=== PATIENT | female | born 1995 | race Caucasian/White ===

== ENCOUNTER 2021-01-21 05:15 | Inpatient (IN) | payer OTHER, SELFPAY ==
[2021-01-21] VITALS (42 sets, daily range): BP systolic 96–136; BP diastolic 54–80; PULSE 71–105; RESP 14–16; TEMP 35.9–37.2; O2SAT 94–100; BMI 32.4
[2021-01-21] MEDS: Lactated Ringers 1,000 ML 50 ML IV (06:15)
[2021-01-21 06:46] LABS: Absolute Lymphocyte Count 1.57 X10^3/uL (0.83-4.51); Absolute Neutrophil Count 8.4 X10^3/uL (2.0-7.7); Basophil# 0.04 X10^3/uL; Basophil% 0.4 % (0-1); Eosinophil# 0.05 X10^3/uL; Eosinophils% 0.5 % (0-5); Hematocrit 32.7 % (37-47); Hemoglobin 10.9 g/dL (12.0-15.0); Lymphocyte # 1.57 X10^3/ul (0.83-4.51); Lymphocyte % 14.1 % (19-41); Mean Corp Hgb Conc 33.3 g/dL (32-36); Mean Corpuscular Hgb 27.9 pg (27.0-32.0); Mean Corpuscular Volume 83.8 fL (81-99); Mean Platelet Vol. 10.3 fl (6.2-12.0); Monocyte# 0.86 X10^3/uL; Monocyte% 7.7 % (0-10); NRBC Flagged by Analyzer 0 % (0-5); Neutrophil # 8.39 X10^3/uL (2.7-7.7); Neutrophil % 75.6 % (47-70); Platelet Count 235 K/mm3 (150-450); RBC Distribution Width CV 14.3 % (11.6-14.6); RBC Distribution Width SD 43.6 fl (35.1-43.9); White Blood Count 11.1 K/mm3 (4.4-11.0)
--- NOTE | 2021-01-21 07:44 | PCM.HP.OB ---
HPI - General General Date of Admission: 01/21/21 HPI Narrative MAHAD LEW, is a 25 F at 39.5 weeks gestation that presents to triage with leaking amniotic fluid. Patient reported feeling a gush of fluid around 0300. Denies any vaginal bleeding. Positive movement. has been uncomplicated. is a result of Clomid and IUI. Maternal Data Information NINA Calculator Estimated Delivery Date Method Current WG Current Estimate 01/23/21 Manual 39w 5d PFSH PFSH Medical History Infertility Home Medications 1 cap PO/SL DAILY 01/21/21 [History Last Taken Unknown] Allergy/AdvReac Type Severity Reaction Status Date / Time No Known Allergies Allergy Verified 01/21/21 06:08 Surgical History H/O elbow surgery History of back surgery Hx of tonsillectomy Social History Smoking Status: Never smoker History Elective abortions Hx Para 0 Spontaneous abortions Hx # Term Pregnancies Ectopic pregnancies Hx # Pregnancies Multiple births # of living children NST FHR Rate Baby A Baseline: 135 Variability:: Moderate Accelerations:: 15 x 15 Decelerations:: None NST Reactive:: Yes FHR Category:: Category I Uterine Activity:: 3-5 minutes- palpate moderate and relaxed in between ROS Eyes Eyes: Denies blurry vision, change in vision or spots in vision ENT HEENT: Denies dizziness or headache(s) Cardiovascular Cardiovascular: Denies abdominal pain, chest pain or dyspnea Respiratory/Chest Respiratory/Chest: Denies cough, dyspnea, shortness of breath at rest or shortness of breath with exertion Gastrointestinal Gastrointestinal: Denies abdominal pain, diarrhea or vomiting Genitourinary Genitourinary: Denies change in urinary stream, difficulty urinating or dysuria Musculoskeletal Musculoskeletal: Reports none Integumentary Integumentary: Denies rash Neurologic Neurologic: Denies dizziness, headache(s), memory loss or weakness Psychiatric Psychiatric: Reports none Vital Signs Vital Signs Vital Signs: 01/21/21 05:40 01/21/21 05:45 01/21/21 05:49 Temperature 96.8 F L Temperature Source Temporal Pulse Rate 99 Blood Pressure 136/69 H BP Systolic 136 BP Diastolic 69 Pulse Ox 97 01/21/21 07:13 01/21/21 07:19 01/21/21 07:21 Temperature 97.8 F 97.9 F Temperature Source Temporal Pulse Rate 82 Blood Pressure 116/64 BP Systolic 116 BP Diastolic 64 Pulse Ox 96 96 Weight Weight: 166 lb Body Mass Index (BMI) 32.4 Physical Exam Const alert, oriented x3 and no apparent distress General Appearance: cooperative Orientation / Consciousness: awake Exam Limitations: no limitations HEENT normocephalic Head and Scalp: normal to inspection Eyes General Eye: normal appearance of both eyes Neck full ROM and no lymphadenopathy Lymph Lymphatic: no lymphadenopathy noted Chest inspection of chest normal Resp normal respiratory effort, normal air movement and clear to auscultation bilaterally Effort and Inspection: able to speak in complete sentences and symmetric chest movement Cardio regular rate and regular rhythm GI normal to inspection, nondistended, normoactive bowel sounds Manual OB Exam: dilated 5, effaced 70 and station -2 Back/Spine normal ROM Extremity full ROM and no calf tenderness Skin no rashes or lesions noted General Skin Exam: no breakdown Neuro oriented x3 and CN's II-XII intact bilaterally Psych mental status grossly normal and thought process normal Labs Labs Labs: Blood Type Pending Antibody Screen Pending Hct 32.7 % (37-47) L Hgb 10.9 g/dL (12.0-15.0) L O+ Rubella Immune HB- neg HC- neg HIV - NR RPR- NR GBS - negative Assessment & Plan (1) 39 weeks gestation of : (2) Spontaneous rupture of amniotic membranes: PLAN: Admit to labor and delivery Routine labs Start IV and titrate per orders GBS negative NST- reactive, Cat. 1 tracing Epidural when indicated Start Pitocin IV and titrate per policy Anticipate Dr. Ho notified and is collaborating physician
[2021-01-21] MEDS: Lactated Ringers 500 ML 999 ML IV (10:28)
[2021-01-21] MEDS: fentaNYL-bupivacaine (epidural) 100 ML BAG EPIDURAL (11:26)
--- NOTE | 2021-01-21 12:31 | PCM.PN.BLA ---
Progress Note Patient seen at bedside. Just got epidural and denies pain. RN at bedside and just completed CE. Continues to leak clear fluid. Physical Exam Const alert and no apparent distress General Appearance: cooperative and comfortable Exam Limitations: no limitations HEENT normocephalic Eyes General Eye: normal appearance of both eyes Neck full ROM General: normal visual inspection Chest Chest: symmetrical chest wall rise Resp normal respiratory effort and normal air movement Effort and Inspection: symmetric chest movement Auscultation: clear to auscultation bilaterally Cardio regular rate and regular rhythm GI normal to inspection, nondistended, normoactive bowel sounds Back/Spine normal ROM Extremity full ROM and no calf tenderness General Extremity: normal exam except as noted Skin no rashes or lesions noted Neuro CN's II-XII intact bilaterally Psych mental status grossly normal Assessment & Plan Assessment/Plan (1) 39 weeks gestation of : (2) Spontaneous rupture of amniotic membranes: PLAN: CE- 6.5/70/-1 FSE and IUPC placed without difficulty Start pitocin IV and titrate per policy Anticipate
[2021-01-21] MEDS: Oxytocin 30 units/NS 500 ml 30 UNITS/500 ML IV.SOLN IV (12:44)
[2021-01-21] MEDS: Lactated Ringers 1,000 ML 200 ML IV (13:25)
[2021-01-21] MEDS: Cefazolin 2 GM in 0.9% Normal Saline 100 ML IV (16:05)
--- NOTE | 2021-01-21 16:46 | EX.PCM.OBRPT ---
Assessment & Plan (1) Late deceleration of heart rate: (2) Arrest of dilation, delivered, current hospitalization: (3) Single live : (4) delivery delivered: Maternal Data Information NINA Calculator Estimated Delivery Date Method Current WG Current Estimate 01/23/21 Manual 39w 5d Final NINA: 01/23/21 Gestational age: 39 5/7 Details Operative Information Date of Procedure: 01/21/21 Pre-Operative Diagnosis: arrest of dilation, persistent late decelerations remote from delivery Post-Operative Diagnosis: same Classification: LUISA Procedure Type: low transverse clam shucking machine tender #1: Alisha Cortez Type of Anesthesia: Epidural Anesthesiologist: Stu Wright Antibiotic Given: Ancef 2 grams IV x1 Drain: Burrows to straight drain Estimated Blood Loss: 800 Fluids Replaced: 1200 Procedure Start Time: 16:16 Procedure Stop Time: 16:49 Time of Delivery: 16:17 Findings Description of Procedure: findings: vigorous male infant, normal uterus, tubes and ovaries, normal placenta with 3 vessel cord The patient had had a prolonged deceleration earlier in labor. She was taken to the operating room but the heart tones recovered and stabilized. She was taken back to the labor room. She was allowed to labor but did not really progress past 6 cm. She had persistently decelerations and another prolonged deceleration. She was taken to the operating room and decision was made to proceed with a section as soon as reasonably possible. The heart tones had recovered when she was in the operating room. Being remote from delivery and having been 6 cm for several hours decision was made to proceed with delivery. The patient was taken to the operating room. She was prepped and draped in the dorsal supine position with a leftward tilt. A Pfannenstiel skin incision was made approximately 2 cm above the symphysis pubis and carried through to underlying layer fascia with the scalpel. The fascia was incised incised in the midline and all layers were extended bluntly. The rectus muscles were in the midline and the peritoneum was entered bluntly. The peritoneal incision was stretched and the bladder blade was placed. The uterine incision was made in a low transverse fashion with the scalpel and extended superiorly and inferiorly with blunt dissection. The amniotic membranes were ruptured bluntly and clear amniotic fluid returned. The 's head was brought to the incision in the flexed position and delivered without difficulty. The remainder of the was delivered with gentle traction and fundal pressure in the standard fashion. The mouth and nares were bulb suctioned. The cord was clamped and cut as the was stimulated. Cord clamping was delayed. The infant was handed off to the waiting nursing staff. The placenta was delivered with fundal massage and gentle traction in the standard fashion. The uterus was exteriorized and cleared of all clots and debris. The uterine incision was closed with #1 Vicryl in a running locked fashion. A second layer of the same suture was used in an imbricating fashion. The incision was examined and was found to be hemostatic. Jason was placed over the incision and some bleeding of the peritoneal edges was noted. Bovie was used to obtain hemostasis of these edges. The uterus was placed back into the peritoneal cavity and hemostasis was again confirmed. The rectus muscles were examined and any bleeding was Bovie cauterized. The parietal peritoneum and rectus muscles were closed en bloc with an 0 Vicryl running suture. The surgical teams outer gloves were then changed. The rectus fascia was examined and any bleeding was Bovie cauterized and the rectus fascia was closed with 1 Vicryl suture in a running standard fashion. The subcutaneous tissue was examining and any bleeding was Bovie cauterized. The subcutaneous tissue was reapproximated with 3-0 Vicryl suture. The skin was closed in a subcuticular fashion by the UI ARCHITECT with me present in the labor and delivery suite. I performed the remainder of the procedure with assistance. All sponge, lap, and needle counts were correct. The patient was taken to her room for recovery in a stable condition. Presentation: Positive for Vertex Amniotic Membrane Rupture Type: Spontaneous Amniotic Fluid Description: Clear Placental Delivery Description: Expressed Placenta Disposition: [facility] Cord Vessel Description: 3 Vessels Cord Entanglement: Around neck x 2, tight Nuchal Cord Compression: Without compression Cord Gases: ABG and VBG Infant A Gender: Male (Darryl) (1 minute): 9 (5 minute): 9 Delayed Cord Clamping: Yes Complications Complications: none Admit VTE Documentation VTE Present on Admission: No VTE Mechan Device Prophylaxis: SCD's VTE Pharm Prophylaxis Ordered: No Reason Prophylaxis Not Ordered: Procedure Not Indicated
[2021-01-21] MEDS: Ketorolac 30 MG/ML Syringe IV ×2 (17:37→23:39)
[2021-01-21] MEDS: 0.9% Saline Lock 10 ML Syringe IV ×2 (17:38→23:39)
[2021-01-21] MEDS: Oxytocin 30 units/NS 500 ml 30 UNITS/500 ML IV.SOLN 167 UNITS IV (17:57)
[2021-01-21] MEDS: Acetaminophen 500 MG Tablet 1000 MG PO ×2 (18:56→23:39)
--- NOTE | 2021-01-21 19:25 | NURSING ---
epidural catheter removed with blue tip intact. dressing placed over site per policy
[2021-01-21] MEDS: Lactated Ringers 1,000 ML 100 ML IV (20:45)
--- NOTE | 2021-01-21 21:05 | NURSING ---
cplotts CNM in room to remove old mepilex and replace with new, regular, dry mepilex dressing. pt tolerated well. bright red blood (small amount) seeping out upon dressing change. 4x4 gauze used with sterile technique to wipe away blood. will continue to monitor. hemodialysis charge nurse in room, as well to assess.,
--- NOTE | 2021-01-21 22:05 | NURSING ---
lucien ALCAZAR contacted this RN. states she spoke with dr cardoso to update her on dressing change. if mepilex gets saturated again throughout the night, lucien and dr cardoso gave order to perform a pressure dressing with ABD. customer agent informed of this order. will continue to monitor dressing drainage.
[2021-01-22] VITALS (10 sets, daily range): BP systolic 97–115; BP diastolic 51–61; PULSE 83–97; RESP 14–16; TEMP 36.1–36.5; O2SAT 95–97
[2021-01-22 04:58] LABS: Hematocrit 26.6 % (37-47); Mean Corp Hgb Conc 33.8 g/dL (32-36); Mean Corpuscular Hgb 28.5 pg (27.0-32.0); Mean Corpuscular Volume 84.2 fL (81-99); Mean Platelet Vol. 10.1 fl (6.2-12.0); Platelet Count 160 K/mm3 (150-450); RBC Distribution Width CV 14.4 % (11.6-14.6); RBC Distribution Width SD 44.2 fl (35.1-43.9); Red Blood Count 3.16 M/mm3 (4.2-5.4); White Blood Count 8.6 K/mm3 (4.4-11.0)
[2021-01-22] MEDS: Acetaminophen 500 MG Tablet 1000 MG PO ×3 (05:44→18:02)
[2021-01-22] MEDS: Ketorolac 30 MG/ML Syringe IV ×2 (05:45→12:12)
[2021-01-22] MEDS: Lactated Ringers 1,000 ML 100 ML IV (05:45)
[2021-01-22] MEDS: 0.9% Saline Lock 10 ML Syringe IV ×3 (05:45→12:12)
--- NOTE | 2021-01-22 08:29 | PCM.PN.OB ---
Subjective Subjective Pain controlled Objective Data Objective Data Vital Signs: Vital Signs Temp Pulse Resp BP Pulse Ox 97.4 F L 84 14 98/56 L 96 01/22/21 04:35 01/22/21 06:39 01/22/21 06:39 01/22/21 04:35 01/22/21 06:39 Oxygen Delivery Method Room Air Weight: 166 lb Body Mass Index (BMI) 32.4 Intake & Output: Intake and Output for Last 24 Hours 01/20/21 01/21/21 01/22/21 23:59 23:59 23:59 Intake Total 3407.90 / 3407.90 1468.33 / 1468.33 Output Total 1650 / 1650 800 / 800 Balance 1757.90 / 1757.90 668.33 / 668.33 Lab / Micro Data Result Diagrams: 01/22/21 04:50 Labs: Laboratory Results - last 24 hr 01/21/21 06:15: Blood Type O POSITIVE, Antibody Screen NEGATIVE 01/22/21 04:50: WBC 8.6, RBC 3.16 L, Hgb 9.0 L, Hct 26.6 L, MCV 84.2, MCH 28.5, MCHC 33.8, RDW Std Deviation 44.2 H, RDW Coeff of Jessica 14.4, Plt Count 160, MPV 10.1 Micro: Microbiology 01/21/21 06:20 Nasal Secretion SARS-CoV-2 Antigen (Rapid) - Final Physical Exam Const alert, oriented x3 and no apparent distress HEENT normocephalic GI soft to palpation, non-tender and non-distended GI Narrative: fundus firm, mid & below umbilicus Incision - bandage dry & intact, clean other than stable, small areas of dried blood Extremity normal to inspection and no calf tenderness Assessment & Plan (1) delivery delivered: COMMENT: PPD#1 PLAN: Heme - HDS, start iron for acute blood loss anemia ID - AF, no signs infection GI/ - no issues Routine care
[2021-01-22] MEDS: Senna/Docusate Sodium 1 Tablet PO (12:12)
[2021-01-22] MEDS: Ferrous Sulfate 325 MG Tablet PO (12:12)
[2021-01-22] MEDS: Ibuprofen 600 MG Tablet PO (18:02)
[2021-01-22] MEDS: oxyCODONE 5 MG Tablet PO (22:58)
[2021-01-23] MEDS: Acetaminophen 500 MG Tablet 1000 MG PO ×3 (00:06→12:14)
[2021-01-23] MEDS: Ibuprofen 600 MG Tablet PO ×3 (00:06→12:15)
[2021-01-23 02:00] VITALS: BP 101/55; PULSE 88; RESP 18; TEMP 36.4; O2SAT 96
--- NOTE | 2021-01-23 07:44 | NURSING ---
All charting by amairani Mccauley reviewed by this RN.
[2021-01-23 07:57] VITALS: BP 107/59; PULSE 81; RESP 16; TEMP 36.6; O2SAT 98
--- NOTE | 2021-01-23 08:49 | PCM.PN.OB ---
Subjective Subjective Pain well controlled. Average lochia. Passing flatus. No bowel movement. Ambulating and tolerating regular diet. Objective Data Objective Data Vital Signs: Vital Signs Temp Pulse Resp BP Pulse Ox 97.9 F 81 16 107/59 L 98 01/23/21 07:57 01/23/21 07:57 01/23/21 07:57 01/23/21 07:57 01/23/21 07:57 Oxygen Delivery Method Room Air Weight: 75.296 kg Body Mass Index (BMI) 32.4 Intake & Output: Intake and Output for Last 24 Hours 01/21/21 01/22/21 01/23/21 23:59 23:59 23:59 Intake Total 3407.90 / 3407.90 1468.33 / 1468.33 Output Total 1650 / 1650 800 / 800 Balance 1757.90 / 1757.90 668.33 / 668.33 Lab / Micro Data Result Diagrams: 01/22/21 04:50 Micro: Microbiology 01/21/21 06:20 Nasal Secretion SARS-CoV-2 Antigen (Rapid) - Final Physical Exam Const alert General Appearance: cooperative GI GI Narrative: soft, moderate distention, fundus firm, appropriately tender. Abdominal bandage clean dry and intact Assessment & Plan (1) delivery delivered: PLAN: Postoperative day #2 status post primary section. Patient and are doing well. Working on breast-feeding. Routine postoperative care. Patient desires discharge home later today if okay with pediatrics. Follow-up in the office within 1 week.
--- NOTE | 2021-01-23 08:50 | DS.PCM_ITS ---
Providers Date of Admission: 01/21/21 Reason For Visit: LABOR AND DELIVERY Diagnosis Discharge Diagnosis (1) delivery delivered: Status: Acute Code(s): O82 - Encounter for delivery without indication Medications at Discharge Home Medications 1 cap PO/SL DAILY 01/21/21 docusate sodium [DOK] 100 mg PO BID PRN PRN #30 capsule 01/23/21 ibuprofen 600 mg PO Q6H PRN #60 tablet 01/23/21 oxycodone 5 mg PO Q6H PRN PRN 7 Days #10 tablet 01/23/21 Hospital Course Operations - (Primary low transverse section Via Pfannenstiel skin incision) Procedures None Summary of Care Provided Hospital Course: Patient was admitted in labor. We attempted to augment labor. However, patient had prolonged decelerations and recurrent late decelerations. In addition, she remained 6 cm for several hours. There have been no significant change in descent of the skull since admission. A primary malissa arean section was then performed on 01/21/2021 for arrest of descent and intolerance of labor. There was significant caput. The station never progressed past -3. The section was performed without difficulty. Postoperative course was unremarkable. By postoperative day #2 she was am bulating, urinating tolerating regular diet. She was discharged home with routine instructions and prescriptions Weight / BMI Weight Weight: 75.296 kg Body Mass Index (BMI) 32.4 ABG / Lab / Microbiology Data Result Diagrams: 01/22/21 04:50 Microbiology: Microbiology 01/21/21 06:20 Nasal Secretion SARS-CoV-2 Antigen (Rapid) - Final D/C Instructions Discharge Diet: No restrictions May resume sexual activity in: 4-6 weeks Lifting Restrictions: 20 pounds Additional Activity Instructions: Nothing in the vagina for 4-6 weeks. You may return to work/school in 6 weeks. Call your doctor if your incision/area has: Continuous Slow Oozing, Sudden Increased Bleeding, Increased Pain/ Swelling, Increased Redness and Foul Smelling Discharge Call your doctor if you observe: Fever of 101 or Higher and Using more than 1 pad per hour (for 2 hours) Suture Line Care: Avoid Pulling/Pushing and Avoid Pinching/Bending Cleanse incision/area with: Keep Dressing Clean & Dry Please Follow Up With: Estephania Ho MD When: Call to make an appointment for an incision check in 1-2 [phone]. You will need a post check in 6 weeks. Meaningful Use Info Meaningful Use Diagnoses (Choose all that apply): None applicable Discharge Plan Admission Admit Date/Time: 01/21/21 05:15 Primary Reason for Your Visit: Labor and delivery. Attending Provider: Estephania Ho Discharge Orders/Prescriptions Prescriptions: New docusate sodium [DOK] 100 MG capsule 100 mg PO BID PRN PRN (Reason: constipation) Qty: 30 RF: 1 ibuprofen [ibuprofen] 600 MG tablet 600 mg PO Q6H PRN (Reason: Pain) Qty: 60 RF: 1 oxycodone 5 MG tablet 5 mg PO Q6H PRN PRN (Reason: severe pain) 7 Days Qty: 10 RF: 0 Continued 1 cap capsule 1 cap PO/SL DAILY RF: 0 Disposition Disposition (needs filled in before D/C Order can be placed): Home, Self Care
[2021-01-23] MEDS: Senna/Docusate Sodium 1 Tablet PO (12:13)
[2021-01-23] MEDS: Ferrous Sulfate 325 MG Tablet PO (12:15)
--- NOTE | 2021-01-23 14:50 | NURSING ---
student nurses charting reviewed. Used for educational and learning purposes.
[2021-01-23 15:21] VITALS: BP 106/57; PULSE 92; RESP 18; TEMP 36.4; O2SAT 96
== END 2021-01-23 16:50 | disposition home or self-care (01) | DRG 787 ==
PROVIDERS: Advanced Practice Midwife; Admitting Provider Obstetrics & Gynecology; Visit Provider Obstetrics & Gynecology
DX: O62.0 Primary inadequate contractions (principal); D62 Acute posthemorrhagic anemia; O76 Abnormality in fetal heart rate and rhythm complicating labor and delivery; Z37.0 Single live birth; Z3A.39 39 weeks gestation of pregnancy; O69.2XX0 Labor and delivery complicated by other cord entanglement, with compression, not applicable or unspecified; O69.81X0 Labor and delivery complicated by cord around neck, without compression, not applicable or unspecified
CPT/HCPCS: 59025; 59050; 85025; 85027; 86850; 86900; 86901; 87426; 99218; 99251; J7120; A4216; G0378; G0463; J2405

== ENCOUNTER 2024-02-03 17:03 | Outpatient (CLI) | payer OTHER, SELFPAY ==
[2024-02-03 17:21] VITALS: BP 133/88; PULSE 100
[2024-02-03 17:24] VITALS: BMI 32.4
--- NOTE | 2024-02-04 07:04 | OB.TRI.HP_ITS ---
HPI - General HPI Narrative MAHAD LEW, is a 28 F at 37.5 weeks gestation that was sent from office for extended monitoring. She has experienced decreased movements and had a lower baseline FHT in office. [facility] Medical History Infertility Home Medications ?Medication ?Instructions ?Recorded ?Last Taken ?Type 1 cap PO/SL DAILY Check with 01/21/21 02/03/24 07:00 History primary doctor 1 tab famotidine 20 mg tablet (Pepcid) 20 mg PO BID 02/03/24 02/03/24 07:00 History 20 mg Allergy/AdvReac Type Severity Reaction Status Date / Time No Known Allergies Allergy Verified 02/03/24 17:25 Surgical History (Updated 01/29/21 @ 13:35 by Riri Ren) H/O elbow surgery History of back surgery Hx of tonsillectomy Social History (System 01/29/21 @ 13:35 by Riri Ren) Smoking Status: Never smoker History 1 Elective abortions Hx Para 0 Spontaneous abortions Hx # Term Pregnancies Ectopic pregnancies Hx # Pregnancies Multiple births # of living children ROS Eyes Eyes: Denies blurry vision Cardiovascular Cardiovascular: Reports none; Denies chest pain at rest, chest pain with activity or dizziness Respiratory/Chest Respiratory/Chest: Denies cough or dyspnea Gastrointestinal Gastrointestinal: Reports none and other; Denies diarrhea or vomiting Genitourinary Genitourinary: Denies dysuria Musculoskeletal Musculoskeletal: Reports none Integumentary Integumentary: Reports none; Denies rash Neurologic Neurologic: Denies dizziness, headache(s) or other visual disturbances Psychiatric Psychiatric: Reports none Physical Exam Const alert and no apparent distress General Appearance: cooperative Orientation / Consciousness: awake Exam Limitations: no limitations HEENT normocephalic Eyes General Eye: normal appearance of both eyes Neck full ROM Chest inspection of chest normal Resp normal respiratory effort and normal air movement Effort and Inspection: symmetric chest movement Auscultation: clear to auscultation bilaterally Cardio regular rate GI soft to palpation, non-tender and non-distended Inspection: and other Back/Spine normal ROM Extremity full ROM, normal capillary refill and no calf tenderness Skin no rashes or lesions noted Neuro oriented x3 and CN's II-XII intact bilaterally Psych mental status grossly normal NST FHR Rate Baby A Baseline: 115-120 Variability:: Moderate Accelerations:: 15 x 15 Decelerations:: None NST Reactive:: Yes FHR Category:: Category I Uterine Activity:: None Assessment & Plan (1) Decreased movement: (2) 37 weeks gestation of : PLAN: Plan NST reactive, Cat. 1 tracing Patient has felt movement several times Reviewed kick counts D/C home with follow up in office
== END 2024-02-03 18:12 | disposition home or self-care (01) ==
LOC: WPOUT 17:07 → WP 17:08
PROVIDERS: PCP Family Medicine; Referring Provider Advanced Practice Midwife; Visit Provider Advanced Practice Midwife
DX: O36.8130 Decreased fetal movements, third trimester, not applicable or unspecified (principal); Z3A.37 37 weeks gestation of pregnancy
CPT/HCPCS: 59025; 59050; 99221; G0378

== ENCOUNTER 2024-02-12 09:36 | Inpatient (IN) | payer OTHER, SELFPAY ==
[2024-02-12] VITALS (15 sets, daily range): BP systolic 92–128; BP diastolic 57–78; PULSE 83–106; RESP 13–22; TEMP 36.1–36.9; O2SAT 95–100; BMI 32.6
[2024-02-12] MEDS: Lactated Ringers 1,000 ML 999 ML IV (10:00)
[2024-02-12 10:28] LABS: Absolute Lymphocyte Count 1.61 X10^3/uL (0.83-4.51); Absolute Neutrophil Count 7.4 X10^3/uL (2.0-7.7); Basophil# 0.03 X10^3/uL; Basophil% 0.3 % (0-1); Eosinophil# 0.05 X10^3/uL; Eosinophils% 0.5 % (0-5); Hematocrit 31.6 % (37-47); Hemoglobin 10.6 g/dL (12.0-15.0); Lymphocyte # 1.61 X10^3/ul (0.83-4.51); Lymphocyte % 15.9 % (19-41); Mean Corp Hgb Conc 33.5 g/dL (32-36); Mean Corpuscular Hgb 26.6 pg (27.0-32.0); Mean Corpuscular Volume 79.4 fL (81-99); Mean Platelet Vol. 9.9 fl (6.2-12.0); Monocyte% 8.9 % (0-10); NRBC Flagged by Analyzer 0 % (0-5); Neutrophil # 7.42 X10^3/uL (2.7-7.7); Neutrophil % 73.2 % (47-70); Platelet Count 244 K/mm3 (150-450); RBC Distribution Width CV 14.9 % (11.6-14.6); Red Blood Count 3.98 M/mm3 (4.2-5.4); White Blood Count 10.1 K/mm3 (4.4-11.0)
[2024-02-12] MEDS: Acetaminophen 500 MG Tablet 1000 MG PO ×3 (10:31→22:19)
[2024-02-12] MEDS: Lactated Ringers 1,000 ML 150 ML IV (11:01)
[2024-02-12 11:24] LABS: Syphilis Antibodies Non-reactive
[2024-02-12] MEDS: Sodium Citrate/Citric Acid 30 ML UDC PO (11:36)
[2024-02-12] MEDS: Cefazolin 2 GM in Syringe IV (12:55)
[2024-02-12] MEDS: Oxytocin 15 Units/NS 250ml 15 UNITS/250 ML IV.SOLN 83 UNITS IV (14:00)
[2024-02-12] MEDS: Ketorolac 30 MG/ML Syringe IV ×2 (14:18→20:06)
[2024-02-12] MEDS: 0.9% Saline Lock 10 ML Syringe IV (20:06)
[2024-02-13] VITALS: BP 98/65; PULSE 78; RESP 17; TEMP 36.2; O2SAT 97
[2024-02-13] MEDS: Ketorolac 30 MG/ML Syringe IV ×2 (02:10→08:30)
[2024-02-13] MEDS: 0.9% Saline Lock 10 ML Syringe IV ×2 (02:11→08:31)
[2024-02-13 04:00] VITALS: BP 106/63; PULSE 84; RESP 16; TEMP 36.4; O2SAT 96
[2024-02-13] MEDS: Acetaminophen 500 MG Tablet 1000 MG PO ×4 (04:24→23:06)
[2024-02-13 06:20] LABS: Hematocrit 30.3 % (37-47); Hemoglobin 10.2 g/dL (12.0-15.0); Mean Corp Hgb Conc 33.7 g/dL (32-36); Mean Corpuscular Hgb 27.1 pg (27.0-32.0); Mean Corpuscular Volume 80.4 fL (81-99); Platelet Count 230 K/mm3 (150-450); RBC Distribution Width SD 43.6 fl (35.1-43.9); Red Blood Count 3.77 M/mm3 (4.2-5.4); White Blood Count 14.9 K/mm3 (4.4-11.0)
[2024-02-13 08:22] VITALS: BP 100/53; PULSE 79; RESP 16; TEMP 36.3; O2SAT 99
[2024-02-13] MEDS: Senna/Docusate Sodium 1 Tablet PO (10:19)
[2024-02-13 13:30] VITALS: BP 120/75; PULSE 78; RESP 16; TEMP 37.1; O2SAT 98
[2024-02-13] MEDS: Ibuprofen 600 MG Tablet PO ×2 (14:20→19:56)
[2024-02-13 20:00] VITALS: BP 112/68; PULSE 100; RESP 18; TEMP 36.4; O2SAT 100
[2024-02-14 02:20] VITALS: BP 116/63; PULSE 73; RESP 16; TEMP 36.5; O2SAT 97
[2024-02-14] MEDS: Ibuprofen 600 MG Tablet PO ×2 (02:27→09:00)
[2024-02-14] MEDS: Acetaminophen 500 MG Tablet 1000 MG PO (04:33)
[2024-02-14] MEDS: Senna/Docusate Sodium 1 Tablet PO (09:49)
[2024-02-14 09:50] VITALS: BP 114/75; PULSE 82; RESP 14; TEMP 36.2; O2SAT 97
== END 2024-02-14 10:30 | disposition home or self-care (01) | DRG 788 ==
PROVIDERS: Admitting Provider Obstetrics & Gynecology; PCP Family Medicine; Referring Provider Obstetrics & Gynecology; Visit Provider Obstetrics & Gynecology
PROC: 10D00Z1 Extraction of Products of Conception, Low, Open Approach (ICD-10-PCS; CPT 59514; principal; 2024-02-12 11:45)
DX: O34.219 Maternal care for unspecified type scar from previous cesarean delivery (principal); O69.2XX0 Labor and delivery complicated by other cord entanglement, with compression, not applicable or unspecified; Z37.0 Single live birth; Z3A.39 39 weeks gestation of pregnancy
CPT/HCPCS: 59025; 59050; 85025; 85027; 86780; 86850; 86900; 86901; 99221; J7120; A4216; G0378; J2405